=== PATIENT | male | born 1965 | race African-American/Black ===

== ENCOUNTER 2019-11-24 09:30 | Emergency (ER) | payer MEDICARE, OTHER ==
[2019-11-24 09:41] VITALS: BP 129/83; PULSE 86; TEMP 98.1; BMI 27.1
--- NOTE | 2019-11-24 09:50 | PDOC ---
History of Present Illness - General Chief Complaint: Cold Symptoms Stated Complaint: COLD SYS Time Seen by Provider: 11/24/19 09:49 History Source: Patient - History of Present Illness Initial Comments: 11/24/19 10:40 54-year-old male complaining of nasal congestion, chills, body aches and tactile temps. No past medical history No sick contacts No recent travels no contacts with persons tested positive for coronavirus Past History - Past Medical History Allergies/Adverse Reactions: Allergies Allergy/AdvReac Type Severity Reaction Status Date / Time No Known Allergies Allergy Verified 11/24/19 09:41 Home Medications: Ambulatory Orders NK [No Known Home Medication] 11/24/19 COPD: No - Psycho Social/Smoking Cessation Hx Smoking History: Never smoked Information on smoking cessation initiated: No Hx Alcohol Use: No Drug/Substance Use Hx: No Review of Systems - Review of Systems Able to Perform ROS?: Yes Is the patient limited Armenian proficient: No Constitutional: Yes: Chills, Malaise, Other Respiratory: Yes: Cough ABD/GI: No: Symptoms Reported, See HPI, Abdominal Distended, Abd. Pain w/ defecation, Blood Streaked Bowels, Constipated, Diarrhea, Difficulty Swallowing, Nausea, Poor Appetite, Poor Fluid Intake, Rectal Bleeding, Vomiting, Indigestion, Abdominal cramping, Tarry Stools, Other : No: Symptoms Reported, See HPI, Burning, Dysuria, Discharge, Frequency, Flank Pain, Hematuria, Incontinence, Pain, Urgency, Testicular Mass, Testicular Swelling, Lesions, Testicular Pain, Other *Physical Exam - Vital Signs Last Vital Signs Temp Pulse Resp BP Pulse Ox 98.1 F 86 19 129/83 100 11/24/19 09:39 11/24/19 09:39 11/24/19 09:39 11/24/19 09:39 11/24/19 09:39 - Physical Exam General Appearance: Yes: Appropriately Dressed HEENT: positive: Normal ENT Inspection Neck: negative: Lymphadenopathy (R), Lymphadenopathy (L) Respiratory/Chest: positive: Lungs Clear, Normal Breath Sounds Cardiovascular: positive: Regular Rhythm, Regular Rate Gastrointestinal/Abdominal: positive: Normal Bowel Sounds, Soft. negative: Tender Neurologic: positive: Fully Oriented, Alert, Normal Mood/Affect ED Progress Note - Progress Note Progress Note: 11/24/19 10:42 A: viral illness P: ibuprofen supportive care Discharge - Discharge Information Problems reviewed: Yes Clinical Impression/Diagnosis: Viral respiratory illness Disposition: HOME - Follow up/Referral - Patient Discharge Instructions Patient Printed Discharge Instructions: DI for Common Cold Additional Instructions: Take ibuprofen/Tylenol every 6 hours, body aches and fever Drink plenty of fluids. Covid-19 Symptoms and Knowing When to Stay Home and Return to Work The following is the most recent guidance from our Infection Prevention and Control team on the symptoms and duration of Covid-19, along with when to stay home from work, when you may return, and what procedures to follow when you are ready to come back. PLease call [facility] : [facility] CORONAVIRUS HOTLINE: What are the most common symptoms of Covid-19? - Muscle aches - Loss of energy and appetite - Persistent cough - Low grade fever lasting 24 hours or more, causing the person to feel feverish with chills If I have Covid-19, how long can I expect to feel sick? - Typically one week. - The majority of individuals feel better in 5 to 7 days with rest and [id number] cold and flu medications. How does illness progress in cases of Covid-19? - A few individuals progress to pneumonia (infection of the lungs) and/or pneumonitis (inflammation of the lungs). - Pneumonia/pneumonitis causes shortness of breath, worsening cough and in most cases, fever. - Individuals with the symptoms of Covid-19 who develop a worsening cough and shortness of breath must seek care quickly. If Im concerned about my symptoms or feel unwell, when must I stay home from work/ school? If you have muscle aches, cough, fatigue and low-grade fever, do not go to work/ school - Post Discharge Activity Work/Back to School Note: Back to Work
[2019-11-24] MEDS ORDERED: IBUPROFEN 600 MG TABLET (FP) PO ONE ×2 (10:41→10:44)
== END 2019-11-24 11:23 | disposition home or self-care (01) ==
LOC: JERFT 09:30
DX: J98.8 Other specified respiratory disorders (principal); B97.89 Other viral agents as the cause of diseases classified elsewhere
CPT/HCPCS: 99283-25